=== PATIENT | male | born 1990 | race Caucasian/White ===

== ENCOUNTER 2017-01-21 13:32 | Emergency (ER) | payer SELFPAY ==
[~2017-01-21] VITALS: Ht 175.3 cm; Wt 74.8 kg
[2017-01-21 13:40] VITALS: BP 126/81
== END 2017-01-21 14:14 | disposition home or self-care (01) ==
LOC: ER 13:34
DX: N41.9 Inflammatory disease of prostate, unspecified (principal)
CPT/HCPCS: 99283; A4606; Z7610

== ENCOUNTER 2017-02-15 17:04 | Emergency (ER) | payer SELFPAY ==
[~2017-02-15] VITALS: Ht 182.9 cm; Wt 81.6 kg
[2017-02-15 17:19] VITALS: BP 118/68
[2017-02-15] MEDS ORDERED: KETOROLAC TROMETHAMINE INJ 60 MG/2 ML VIAL IM ONE (17:30)
[2017-02-15] MEDS ORDERED: KETOROLAC TROMETHAMINE INJ 30 MG/ML VIAL ONE (17:33)
[2017-02-15 18:12] LABS: APPEARANCE,URINE Clear (CLEAR); BILIRUBIN,URINE Negative (NEGATIVE); BLOOD, URINE Negative Ery/uL (NEGATIVE); COLOR,URINE Yellow (YELLOW); KETONES,URINE Negative (NEGATIVE); LEUKOCYTE ESTERASE ,URINE Negative (NEGATIVE); NITRITE, URINE Negative (NEGATIVE); PH,URINE 7.5 (5.0-8.0); PROTEIN,URINE Negative (NEGATIVE); UGLUCOSE Negative (NEGATIVE); UROBILINOGEN,URINE 0.2 EU/dL (0.2)
== END 2017-02-15 19:12 | disposition home or self-care (01) ==
LOC: ER 17:06
DX: R30.0 Dysuria (principal)
CPT/HCPCS: 81000-TC; 87086-TC; A4606; J1885; Z7610